=== PATIENT | female | born 1980 | race Caucasian/White ===

== ENCOUNTER 2022-09-21 22:30 | Emergency (ER) | payer MEDICAID, OTHER ==
[~2022-09-21] VITALS: Ht 175.3 cm; Wt 77.1 kg
[2022-09-22 01:37] VITALS: BP 134/82; TEMP 98.1; O2SAT 98
[2022-09-22] MEDS ORDERED: ONDANSETRON 4 MG TAB.RAPDIS ONE (01:40)
[2022-09-22] MEDS ORDERED: ONDANSETRON 4 MG TAB.RAPDIS SL ONE (02:00)
[2022-09-22] MEDS ORDERED: ONDA4TAB5 PO (02:26)
== END 2022-09-22 02:47 | disposition home or self-care (01) ==
LOC: ER 22:52
DX: R11.2 Nausea with vomiting, unspecified (principal); Z79.899 Other long term (current) drug therapy
CPT/HCPCS: 99283; Q0162